=== PATIENT | male | born 1965 | race American Indian/Alaskan Native ===

== ENCOUNTER 2016-04-30 12:16 | Day surgery (SDC) | payer OTHER ==
[2016-04-30] MEDS ORDERED: WATER FOR IRRIG STERILE IR ONE (12:25)
[2016-04-30] MEDS ORDERED: NACL 0.9% 1000 ML 1,000 ML IV SCH (13:00)
--- NOTE | 2016-04-30 13:59 | Anesthesia Day of Surgery ---
Anesthesia Day of Surgery - Day of Surgery Patient Examined: Yes Patient H&P Reviewed: Yes Patient is NPO: Yes
--- NOTE | 2016-04-30 14:00 | Anesthesia Consultation ---
Anesthesia Consult and Med Hx Date of service: 04/30/16 - Airway Anesthetic Teeth Evaluation: Good ROM Head & Neck: Adequate Mental/Hyoid Distance: Adequate Mallampati Class: Class II Intubation Access Assessment: Probably Good - Pulmonary Exam CTA: Yes - Cardiac Exam Cardiac Exam: RRR - Pre-Operative Health Status ASA Pre-Surgery Classification: ASA1 Proposed Anesthetic Plan: MAC - Pulmonary Hx Smoking: No - Other Systems Hx Cancer: No
[2016-04-30] MEDS ORDERED: DIPRIVAN 10 MG/ML IV ONE ×2 (14:23→14:24)
--- NOTE | 2016-04-30 14:58 | Operative Report ---
Operative Report Operative Report: Date of procedure: 04/30/2016 Procedure: Colonoscopy snare polypectomy Attending physician: Waldemar Ng MD [employer] Operator: Waldemar Ng MD Indication: Colorectal cancer screening Consent: Informed consent was obtained after advising the patient and family regarding nature of this procedure, its indications, potential benefits as well as possible complications including but not limited to bleeding perforation and adverse reaction to medication, infection as well as other cardiopulmonary complications. An informed written and verbal consent was then obtained after due opportunity was provided for questions and answers. Monitoring: Patient was monitored continuously with pulse oximetry and electrocardiographic recordings as well as blood pressure recordings. Vital signs remained stable throughout this procedure with no untoward events. Preoperative assessment: Patient was assessed immediately prior to this procedure for capacity to tolerate monitored anesthesia care and moderate sedation as well as general anesthesia. Patient's ASA classification is 2, Mallampati class is 2, Hyomental distance is 3. Instrument: Byclern videocolonoscope Medications: Propofol, given intravenously in divided doses. For details please refer to anesthesia records Description of procedure: Patient was placed in the left lateral decubitus position after achieving sedation, a digital rectal examination was performed following which the colonoscope was introduced into the anal verge and advanced to the cecum which was identified by the cecal valve, the appendiceal orifice, as well as by the cecal strap and direct transillumination. The colonoscope was subsequently withdrawn with careful inspection of all mucosal surfaces. Patient tolerated this procedure well and was subsequently taken to the recovery room. The following findings were noted. Findings: Patient had a sessile 1 cm polyp in the sigmoid colon which was removed by snare electrocautery. Portions of it was retrieved. There was some thick liquid stool in the cecum. The rest of the colon was normal. On the retroflex view at the anal verge, patient had internal hemorrhoids. Impression: Sigmoid colon polyp status post snare polypectomy Internal hemorrhoids. Retained stool. Plan: Follow pathology report. Repeat colonoscopy in 5 years. High-fiber diet.
--- NOTE | 2016-04-30 15:00 | Discharge Summary ---
Short Stay Discharge Plan Activity: advance as tolerated Weight Bearing Status: Weight Bear as Tolerated Diet: regular
[2016-04-30 15:24] VITALS: BP 105/72
--- NOTE | 2016-04-30 16:01 | Post Anesthesia Evaluation ---
- Post Anesthesia Evaluation Patient Participated: Yes Airway Patent: Yes Stable Respiratory Function: Yes Temp > 96.8F: Yes Pain Manageable: Yes Adequeate Hydration: Yes Anesthesia Complications: No Block Receding Appropriately: Not Applicable
== END 2016-04-30 12:17 | disposition home or self-care (01) ==
LOC: GIO 12:16
PROVIDERS: ATTEND Internal Medicine Gastroenterology
DX: Z12.11 Encounter for screening for malignant neoplasm of colon (principal); D12.5 Benign neoplasm of sigmoid colon; K64.8 Other hemorrhoids; Z82.49 Family history of ischemic heart disease and other diseases of the circulatory system
CPT/HCPCS: 45385; 88305; J2704; J7030